=== PATIENT | female | born 1975 | race Caucasian/White ===

== ENCOUNTER 2021-09-14 08:24 | Emergency (ER) | payer MEDICAID ==
[~2021-09-14] VITALS: Ht 167.6 cm; Wt 93.4 kg
[2021-09-14 08:28] VITALS: BP 149/92
--- NOTE | 2021-09-14 08:38 | NUR ---
46/F BIB SELF C/O COUGH, DIFFICULTY BREATHING, 4/10 ROSA, [place] X YESTERDAY. O2SAT 96% AT THIS TIME. SEEN PCP 2 DAYS AGO FOR SORE THROAT & GOT ANTIBITIC.COVID TESTED NEGATIVE 2 DAYS AGO. PMH: ASTHMA
[2021-09-14] MEDS ORDERED: PRED20TA5 PO (09:38)
[2021-09-14] MEDS ORDERED: IBUP-2213 PO (09:38)
[2021-09-14 10:02] VITALS: BP 111/79
--- NOTE | 2021-09-14 10:02 | NUR ---
Patient discharged with v/s stable. Written and verbal after care instructions given and explained. Patient alert, oriented and verbalized understanding of instructions. Ambulatory with steady gait. All questions addressed prior to discharge. ID band removed. Patient advised to follow up with PMD. Rx of IBUPROFEN & DELTASONE given. Patient educated on indication of medication including possible reaction and side effects. Opportunity to ask questions provided and answered.
== END 2021-09-14 10:02 | disposition home or self-care (01) ==
LOC: MED 08:24
DX: R05.9 Cough, unspecified (principal); R06.02 Shortness of breath; R07.9 Chest pain, unspecified; J45.909 Unspecified asthma, uncomplicated; F17.200 Nicotine dependence, unspecified, uncomplicated; Z90.49 Acquired absence of other specified parts of digestive tract
CPT/HCPCS: 99283

== ENCOUNTER 2021-10-07 12:27 | Emergency (ER) | payer MEDICAID ==
[~2021-10-07] VITALS: Ht 170.2 cm; Wt 93.4 kg
[~2021-10-07 12:27] MED LIST: IBUP-2213 PO; PRED20TA5 PO
[2021-10-07 13:02] VITALS: BP 102/66
[2021-10-07] MEDS ORDERED: BENZ-300 PO (13:49)
[2021-10-07] MEDS ORDERED: DEXAMETHASONE 4 MG/ML VIAL PO ONE (13:50)
--- NOTE | 2021-10-07 14:25 | NUR ---
Patient discharged with v/s stable. Written and verbal after care instructions given. Patient alert, oriented and verbalized understanding of instructions. Ambulatory with steady gait. All questions addressed prior to discharge. ID band removed. Patient advised to follow up with PMD. Rx of CEPACOL SORE THROAT LOZENGE given. Opportunity to ask questions provided and answered.
[2021-10-07 14:26] VITALS: BP 97/66
--- NOTE | 2021-10-07 14:32 | NUR ---
The patient's care was reviewed and supervised by [facility], RN.
== END 2021-10-07 14:25 | disposition home or self-care (01) ==
LOC: MED 12:27
DX: J02.9 Acute pharyngitis, unspecified (principal); G93.3 Postviral and related fatigue syndromes; J45.909 Unspecified asthma, uncomplicated; Z79.899 Other long term (current) drug therapy; Z79.1 Long term (current) use of non-steroidal anti-inflammatories (NSAID)
CPT/HCPCS: 71045; 99283; J1100